=== PATIENT | female | born 1950 | race Caucasian/White ===

== ENCOUNTER 2024-09-07 21:34 | Outpatient (REF) | payer SELFPAY ==
[2024-09-07 22:01] LABS: Bilirubin Negative (Negative); Blood Negative (Negative); Clarity Cloudy (Clear); Glucose Negative (Negative); Ketones Negative (Negative); Leukocyte Esterase Trace (Negative); Nitrite Negative (Negative); Specific Gravity 1.025 (1.005-1.025); Urobilinogen 0.2 mg/dL (Up to 0.2); pH 5.5 (5-8)
[2024-09-07 22:08] LABS: RBC Negative HPF (0-2)
[2024-09-07 22:09] LABS: Bacteria Negative HPF (Negative); C & S Indicated? No; Crystals Mod Calcium Oxalate HPF (Negative); Epithelial Cells Rare HPF (Negative); Mucus Negative (Negative)
== END 2024-09-07 21:35 | disposition home or self-care (01) ==
LOC: LBN 21:34
PROVIDERS: Visit Provider Nurse Practitioner Family
DX: R39.9 Unspecified symptoms and signs involving the genitourinary system (principal); R30.0 Dysuria; N39.0 Urinary tract infection, site not specified; N89.8 Other specified noninflammatory disorders of vagina
CPT/HCPCS: 81003; 81015; 87480; 87510; 87660

== ENCOUNTER → 2025-08-26 10:39 | Outpatient (CLI) | payer BC, SELFPAY ==
--- NOTE | 2025-08-26 | DI.RAD_ITS ---
Exam(s) XR CHEST 2V PA LATERAL EXAM: XR CHEST 2V PA LATERAL CLINICAL HISTORY: J06.9 Acute upper respiratory infection, unspecified TECHNIQUE: 2D digital imaging was performed of the chest. Two images were obtained. PA and lateral views were obtained. COMPARISON: No exams were available for comparison FINDINGS: MEDIASTINUM: Normal. HEART: Normal. PULMONARY VASCULATURE: Normal. LUNGS: The lungs appear hyperinflated suggesting underlying COPD. There are increased interstitial markings seen in the right lung peripherally predominantly in the lower lobes. The left lung appears clear. There are no focal consolidating infiltrates present. PLEURAL SPACE: No pleural effusion or pneumothorax. BONE:Within normal limits for the patient's age. OTHER FINDINGS:Normal. IMPRESSION: Diffuse interstitial process in the right lung. Differential considerations include interstitial pneumonitis, interstitial edema or chronic interstitial fibrosis. Please correlate clinically. A high-resolution CT scan of the chest should be considered for further evaluation. DATA REPOSITORY: RADIATION DOSE DELIVERED:
--- NOTE | 2025-08-26 | DI.CT_ITS ---
Exam(s) CT CHEST HIGH RESOLUTION EXAM: CT CHEST HIGH RESOLUTION CLINICAL HISTORY: ABNL CXR, R93.89, ABNL FINDINGS ON DIAGNOSITIC IMAGING. TECHNIQUE: Multi planar reconstructions were performed. CONTRAST MATERIAL: None COMPARISON: CR XR CHEST 2V PA LATERAL from 08/26/2025 FINDINGS: CHEST: LUNGS: There is scarring in both lung apices. However, in the left upper lobe there is also an area of significant infiltrate adjacent to a just above the top of the aortic arch, this lung infiltrate measuring approximately 3 cm by 1.6 cm by 4.5 cm craniocaudal. This requires close follow-up to resolution to rule out neoplasm. There is no overlying rib destruction. Otherwise there is a lesser amount of infiltrate in the sub apical aspect of the right upper lobe and there are patchy and nodular infiltrates throughout the right lung field as well as a few small subtle areas of ground-glass infiltrate.. There is also a calcified granuloma in the lower right lung an teriorly and area of subpleural infiltrate in the anterior basal segment of the right lower lobe. There are no pleural effusions. No significant focal findings in the trachea and mainstem bronchi. There is mild bronchiectasis in the right lower lobe basal segments. MEDIASTINUM: Possible mild bilateral hilar adenopathy difficult to assess without IV contrast. There does not appear to be adenopathy in the anterior mediastinal fat nor paratracheal region nor subcarinal adenopathy. Small sub cm nodule is noted in the left thyroid lobe.No supraclavicular adenopathy. No axillary adenopathy. CARDIAC: Heart size is normal. There is no pericardial effusion.Caliber of the thoracic aorta is within upper normal limits. VISUALIZED UPPER ABDOMEN:No adrenal masses nor splenomegaly. No ascites evident. OSSEOUS: No significant osseous lesions.No fractures. No significant thoracic scoliosis. IMPRESSION: 1. Bilateral patchy and multifocal nodular infiltrates, not associated with pleural effusions although there appears to be some mild bilateral hilar adenopathy which is difficult to assess without IV contrast. 2. Largest area of infiltrate is in the sub apical left upper lobe extending from the superior pleural surface down to the top of the aortic arch and measuring 4.5 cm craniocaudal by 3 cm x 1.6 cm. It is interesting to note that this large finding is not visible on chest x-ray performed earlier today. This requires close follow-up to rule out neoplasm 3. Recommend follow-up CT scans to ensure resolution or progression of the above findings in both lung you. Preliminary virtual Radiology report was reviewed. RADIATION DOSE DELIVERED: 306.03mGy.cm Total DLP DATA REPOSITORY: All CT scans at this facility are submitted to the National Radiology Data Registry (NRDR) Dose Index Registry (DIR) with the [employer] ([employer]). RADIATION OPTIMIZATION: All CT scans at this facility use at least one of these dose optimization techniques: automated exposure control; mA and/or kV adjustment per patient size (includes targeted exams where dose is matched to clinical indication); or iterative reconstruction.
--- NOTE | 2025-08-26 15:58 | DI.VRAD_ITS ---
PROCEDURE INFORMATION: Exam: CT Chest Without Contrast, Diagnostic, High Resolution Exam date and time: 08/26/2025 3:22 PM Age: 75 years old Clinical indication: Abnormal findings; Abnormal radiologic exam of lung or chest; Abnl cxr abnl findings on diagnositic imaging TECHNIQUE: Imaging protocol: Diagnostic computed tomography of the chest without contrast. Exam was performed with high resolution protocol. 3D rendering (Not supervised by radiologist): MIP and/or 3D reconstructed images were created by the technologist. COMPARISON: CR XR CHEST 2V PA LATERAL 08/26/2025 10:53 AM FINDINGS: Lungs: Patchy bilateral ground-glass opacities may represent multifocal pneumonia.. Bronchiectasis in the right middle lobe and right lower lobe Pleural spaces: Unremarkable. No pneumothorax. No pleural effusion. Heart: Unremarkable. No cardiomegaly. No pericardial effusion. Vasculature: Unremarkable. No aortic aneurysm. Lymph nodes: Unremarkable. No enlarged lymph nodes. Bones/joints: Unremarkable. No acute fracture. Soft tissues: Unremarkable. IMPRESSION: Patchy bilateral ground-glass opacities may represent multifocal pneumonia.. Dictated and Authenticated by: Micheal Doll MD. Orderin Nakul Simon MD
== END ==
LOC: DI 10:40
PROVIDERS: Visit Provider Physician Assistant Medical
DX: J06.9 Acute upper respiratory infection, unspecified (principal); R93.89 Abnormal findings on diagnostic imaging of other specified body structures
CPT/HCPCS: 71250; 71046